=== PATIENT | female | born 1945 | race Asian ===

== ENCOUNTER 2018-06-16 18:29 | Inpatient (IN) ==
[2018-06-16] MEDS ORDERED: *HR* Labetalol 20 MG/4 ML SYRINGE IVP ONE (19:41)
[2018-06-16] MEDS ORDERED: Aspirin 81 MG TAB.CHEW PO ONE (19:41)
[2018-06-16 20:10] LABS: Basophils % 0.4 %; Eosinophils # 0.1 K/mcL (0.0-0.6); Eosinophils % 0.8 %; Hematocrit 39.1 % (35.3-44.9); Hemoglobin 13.6 g/dL (11.5-15.4); Immature Granulocytes % 0.5 % (0-4); Lymphocytes # 1.8 K/mcL (0.6-4.6); Mean Corpuscular HGB Conc 34.8 g/dL (31.6-35.5); Mean Corpuscular Hemoglobin 30.2 pg (28.0-33.3); Mean Corpuscular Volume 86.7 fL (83.0-100.0); Mean Platelet Volume 8.4 fL (9.4-12.4); Monocytes # 0.5 K/mcL (0.0-1.3); Monocytes % 7.2 %; Neutrophils # 4.9 K/mcL (1.6-8.9); Platelet Count 331 K/mcL (140-400); Red Blood Count 4.51 M/mcL (3.82-4.97); Red Cell Distribution Width 12.3 % (11.5-14.5); Segmented Neutrophils % 67.1 %
--- NOTE | 2018-06-16 20:15 | Emergency Department Note ---
Disposition Clinical Impression: Cerebrovascular accident Qualifiers: CVA mechanism: unspecified Qualified Code(s): I63.9 - Cerebral infarction, unspecified Disposition: Admitted As Inpatient Condition: Fair Referrals: NONE,PCP [Primary Care Provider] - Forms: ED Satisfaction Letter Time of Disposition: 22:59 Neuro HPI - General Chief Complaint: ED Neuro Symptoms/Deficit Stated Complaint: Neuro symptoms Time Seen by Provider: 06/16/18 19:16 Source: patient, family Limitations: no limitations Nursing Notes Reviewed: Yes Vital Signs Reviewed: Yes - History of Present Illness HPI Narrative: 72-year-old female with no prior medical history on no medications presents to the emergency department complaining of right sided weakness and unable to walk. Symptoms started yesterday morning. reports that she seemed okay when she got up yesterday morning and they made some soup but she did not want to eat and went back to bed around 10 AM. He states that all day yesterday she just stayed in bed and did not want to get up. When she did try to get up she was unable to stand or walk. He states her legs just did not work. She also is noted to have right arm and right leg weakness. also reports that her speech has been slow and slurred and not normal for her. No prior history of hypertension or strokes. Patient denies any headache. She denies any fall or injury to the head. No other symptoms. Symptoms have been constant since onset and do not seem to have improved. Onset of Symptoms Date: 06/15/18 Onset of Symptoms Time: 10:00 Timing confirmed by: spouse Location: right face, dysarthria, right arm, right leg History of same: No Severity: moderate Quality: weakness, constant Symptoms Improving: No On Anticoagulants: No Associated symptoms: Reports: loss of appetite, malaise, weakness. Denies: confusion, chest pain, cough, diaphoresis, fever/chills, headaches, nausea/ vomiting, vertigo, seizures, shortness of breath, syncope Treatments Prior to Arrival: none - Related Data Home Medications: Home Medications Medication Instructions Recorded Confirmed No Known Home Drugs 06/16/18 06/16/18 Allergies/Adverse Reactions: Allergies Allergy/AdvReac Type Severity Reaction Status Date / Time No Known Allergies Allergy Verified 06/16/18 19:15 All systems ED: reviewed and negative except as stated. Constitutional: Reports: weakness. Denies: fever, chills Eyes: Denies: eye pain, vision change ENT ED: Denies: throat pain, dysphagia Cardiovascular: Denies: chest pain, palpitations, dyspnea on exertion, edema, syncope Respiratory: Denies: cough, dyspnea Gastrointestinal: Denies: abdominal pain, nausea, vomiting, diarrhea, constipation, hematemesis, melena, hematochezia Genitourinary: Denies: dysuria, frequency, hematuria Musculoskeletal: Denies: back pain, neck pain Integumentary: Denies: rash Neurological: Reports: weakness. Denies: headache, confusion Psychiatric: Denies: anxiety, depression Endocrine: Reports: fatigue Hematological/Lymphatic: Denies: easy bleeding Allergic/Immunologic: Denies: facial swelling Past Medical History - Past Medical History Medical history: Reports: hyperlipidemia, hypertension Psychiatric history: Reports: no psych history - Social History Smoking Status: Former smoker Smokeless Tobacco Status: No Alcohol use: Reports: rarely Drug use: Reports: none Physical Exam - General Limitations: no limitations General appearance: alert, in no apparent distress - Head Head exam: atraumatic, normocephalic, normal inspection - Eye Eye exam: Present: normal appearance, PERRL, EOMI. Absent: scleral icterus, conjunctival injection - ENT ENT exam: normal exam, normal oropharynx, mucous membranes moist, TM's normal bilaterally, normal external ear exam - Neck Neck exam: Present: normal inspection, full ROM, trachea midline. Absent: tenderness, meningismus, lymphadenopathy - Chest Chest inspection: Present: normal inspection, symmetric chest wall rise. Absent : tenderness - Respiratory Respiratory exam: Present: normal lung sounds bilaterally. Absent: respiratory distress, wheezes, stridor, accessory muscle use - Cardiovascular Cardiovascular exam: Present: regular rate, normal rhythm, normal heart sounds - Abdominal Exam Abdominal exam: Present: soft, Non-Tender, normal bowel sounds. Absent: distention, guarding, rebound, rigidity - Extremities Exam Extremities exam: Present: normal inspection. Absent: tenderness, pedal edema - Back Exam Back exam: Present: normal inspection. Absent: CVA tenderness (R), CVA tenderness (L) - Neurological Exam Neurological exam: Present: alert, oriented X3 - Expanded Neurological Exam Patient oriented to: Present: person, place, time Speech: Absent: receptive aphasia, expressive aphasia, total aphasia Cranial nerves: EOM function (II, III, IV, ): Normal, facial sensation (V): Normal, facial palsy (VII): Abnormal Right, tongue deviation (XII): Abnormal Right Motor strength - RUE: 1/5 Motor strength - RLE: 1/5 Coma Scale Eye Opening: Spontaneous Coma Scale Motor Response: Obeys Commands Coma Scale Verbal Response: Oriented Coma Scale Total: 15 - Psychiatric Psychiatric exam: Present: normal affect, normal mood - Skin Skin exam: Present: warm, dry, intact, normal color. Absent: cyanosis, diaphoresis Course Course Narrative: 72-year-old female with no prior medical history presents with acute CVA symptoms with onset about 36 hours ago. Her speech is slow and slightly slurred. She has slight right facial drooping. She has significant right upper and lower extremity weakness and is unable to ambulate. Noted to be hypertensive on arrival here. No history of hypertension. She is not on any regular medications. Patient will be given aspirin and stroke workup initiated. She will be admitted for further evaluation. - Consultations Consultation #1: 22:56 The hospitalist, Dr. Zhong, was consulted and accepted admission of the patient. Time: 22:23 Vital Signs Temperature 97.9 F 06/16/18 18:42 Pulse Rate 89 06/16/18 18:42 Respiratory Rate 16 06/16/18 18:42 Blood Pressure 221/97 06/16/18 18:42 O2 Sat by Pulse Oximetry 98 06/16/18 18:42 Temperature 97.9 F 06/16/18 18:42 Pulse Rate 75 06/16/18 20:38 Respiratory Rate 17 06/16/18 20:38 Blood Pressure 153/74 06/16/18 20:38 O2 Sat by Pulse Oximetry 95 06/16/18 20:38 Oxygen Delivery Oxygen Delivery Room Air Neuro Symptoms/Deficit - Lab Data Lab results reviewed: Yes I reviewed the patient's lab results. Result diagrams: 06/16/18 19:41 06/16/18 19:41 Lab Results 06/16/18 06/16/18 06/16/18 Range/Units 19:41 19:41 19:41 WBC 7.4 (4.3-11.1) K/mcL RBC 4.51 (3.82-4.97) M/mcL Hgb 13.6 (11.5-15.4) g/dL Hct 39.1 (35.3-44.9) % MCV 86.7 (83.0-100.0) fL MCH 30.2 (28.0-33.3) pg MCHC 34.8 (31.6-35.5) g/dL RDW 12.3 (11.5-14.5) % Plt Count 331 (140-400) K/mcL MPV 8.4 L (9.4-12.4) fL Immature Gran % 0.5 (0-4) % Seg Neutrophils % 67.1 % Lymphocytes % 24.0 % Monocytes % 7.2 % Eosinophils % 0.8 % Basophils % 0.4 % Neutrophils # 4.9 (1.6-8.9) K/mcL Lymphocytes # 1.8 (0.6-4.6) K/mcL Monocytes # 0.5 (0.0-1.3) K/mcL Eosinophils # 0.1 (0.0-0.6) K/mcL Basophils # 0.0 (0.0-0.2) K/mcL PT 11.2 (9.4-12.1) Seconds INR 1.0 APTT 31.6 (26.0-36.0) Seconds Sodium 135 L (136-145) mEq/L Potassium 3.8 (3.5-5.1) mEq/L Chloride 101 (98-107) mEq/L Carbon Dioxide 19 L (23-29) mEq/L BUN 15 (8-23) mg/dL Creatinine 0.61 (0.60-1.20) mg/dL Est GFR ( Amer) > 60 (> 60) Est GFR (Non-Af Amer) > 60 (> 60) BUN/Creatinine Ratio 25 (6-26) Glucose 178 H (70-105) mg/dL Calculated Osmolality 285 (280-300) Calcium 9.4 (8.6-10.3) mg/dL Troponin I < 0.03 (< 0.04) ng/mL - Radiology Data Radiology results reviewed: Yes I reviewed the patient's radiology results. Chest X-Ray 06/16/18 19:44 IMPRESSION: No acute cardiopulmonary disease. D/ / Frankie Finch MD / Frankie Finch MD Interpreting Provider: Frankei Finch MD Head CT 06/16/18 19:46 IMPRESSION: No acute intracranial abnormality. D/ / Frankie Finch MD / Frankie Finch MD Interpreting Provider: Frankie Finch MD - EKG Data EKG attestation: Yes I reviewed and interpreted this EKG. EKG results narrative: EKG shows a normal sinus rhythm with ventricular rate is 78. LVH. Anterior ST segment elevation likely secondary to the LVH as there are no reciprocal changes and patient has no chest pain. TPA Checklist - LKW: 3-4.5 hrs Add. Warnings/Precautions Patient/family understanding: The patient/family members have been counseled and understood the risk, benefit , and alternatives of treatment.
[2018-06-16 20:16] LABS: Prothrombin Time 11.2 Seconds (9.4-12.1)
[2018-06-16 20:18] LABS: Activated Partial Thrombo Time 31.6 Seconds (26.0-36.0)
[2018-06-16 20:33] LABS: Troponin I < 0.03 ng/mL (< 0.04)
[2018-06-16 22:18] LABS: BUN/Creatinine Ratio 25 (6-26); Blood Urea Nitrogen 15 mg/dL (8-23); Calcium 9.4 mg/dL (8.6-10.3); Carbon Dioxide 19 mEq/L (23-29); Chloride 101 mEq/L (98-107); Glucose 178 mg/dL (70-105); Osmolality,Calculated 285 (280-300); Potassium 3.8 mEq/L (3.5-5.1); Sodium 135 mEq/L (136-145); eGFR For Non-African Americans > 60 (> 60)
[2018-06-17] MEDS ORDERED: Gadolinium Contrast Agent (WT Based) IV PRN (00:42)
[2018-06-17] MEDS ORDERED: Acetaminophen 325 MG TABLET PO PRN (00:42)
[2018-06-17] MEDS ORDERED: *HR* Labetalol 20 MG/4 ML SYRINGE IVP ONE (00:51)
--- NOTE | 2018-06-17 01:46 | Internal Med History&Physical ---
Date of Encounter: 06/17/18 Time of Encounter: 01:42 Internal Medicine - H&P: HPI Chief complaint: weakness Admitted From: Home Plans for Post Hospital Care: Home History of present illness: 72-year-old female with no reported prior medical history and is on no medications who presented to the emergency department complaining of right sided weakness and the inability to walk. Apparently the symptoms started on Friday morning. The reports that she seemed okay when she got up in the morning and they made some soup but she did not want to eat and went back to bed around 10 AM. He states that all day she just stayed in bed and did not want to get up. When she did try to get up she was unable to stand or walk. He states her legs just did not work. He also noted her speech was more slurred and she was unable to move her right arm well. They did not seek medical attention and waited for another 24 hours in Friday evening to seek attention as they noticed she was not improving. On my assessment she denies headache, diplopia, chest pain and dyspnea. She states that she has been healthy till this point. In the ER she was seen to have elevated BP and was given IV labetalol. Head CT was done and negative. She received loading dose ASA. She is admitted for further care as stroke alert could not be called given the time of onset. Past Med Surg Social Fam HX - Past Medical History Medical history: hyperlipidemia, hypertension Additional medical history: cervial cancer Psychiatric history: no psych history - Social History Smoking Status: Former smoker Smokeless Tobacco Status: No Alcohol use: rarely Drug use: none Internal Medicine - H&P: Meds No Known Home Drugs 06/16/18 [History] 3 Allergy/AdvReac Type Severity Reaction Status Date / Time No Known Allergies Allergy Verified 06/16/18 19:15 All Systems PM: A 10-system review of systems was performed and is negative for pertinent findings except as documented above in the HPI. - Constitutional Vitals: Temp Pulse Resp BP Pulse Ox 98.0 F 73 15 199/85 95 06/17/18 00:58 06/17/18 00:58 06/17/18 00:58 06/17/18 00:58 06/17/18 00:55 Exam: Vitals: Reviewed General: Well-developed, well-appearing, NAD Skin: Warm and supple. HEENT: Moist mucous membranes. No conjunctivae pallor. Deviation of labial commissure to the left. Neck: No lymphadenopathy. No JVD. No carotid bruits. No palpable thyroid. Chest: Normal thoracic expansion. Normal breath sounds. Clear to auscultation. Heart: Normal S1 & S2; rhythmic. No rubs or murmurs. Abdomen: Non-distended, soft and non-tender to palpation. No peritoneal reaction. Liver is normal in size. Spleen is not palpable. Extremities: No clubbing, cyanosis or edema. No calf tenderness. Normal distal pulses. Neurological: Awake, alert and oriented to person, place and time. 2/5 RUE/RLE strength. 5/5 LUE/LLE strength. Sensation intact. Psych: Affect appropriate. Internal Med - H&P Results - Labs CBC & Chem 7: 06/16/18 19:41 06/16/18 19:41 - Assessment and plan (1) Cerebrovascular accident Current Visit: Yes Status: Acute Assessment and plan: The patient has a complete symmetric right hemiparesis which is persistent after 24 hours concerning for a CVA affecting the MCA territory. She has no known risk factors however is seen hypertensive upon arrival; unclear if this was a precipitating factor or now a reflex mechanism. Will control BP to ensure systolic does not go over 180mmHg and can start oral medications in the morning. Neurology, speech and PT consultation. Brain MRI/MRA necessary. Carotid eval and echo. Keep on telemetry. ASA 81mg daily after loading dose. High dose statin to be started. Fall/aspiration precautions Qualifiers: CVA mechanism: unspecified Qualified Code(s): I63.9 - Cerebral infarction, unspecified (2) Hypertension Current Visit: Yes Status: Acute Assessment and plan: As stated above. Qualifiers: Hypertension type: essential hypertension Qualified Code(s): I10 - Essential (primary) hypertension (3) DVT prophylaxis Current Visit: Yes Status: Acute Assessment and plan: SubQ heparin. - Time Spent With Patient Total time spent is greater than 50% in coordination of care (as documented) at patient's floor/unit and/or counseling patient: Greater than 35 minutes
[2018-06-17 02:25] LABS: Bilirubin,Urine Negative (Negative); Blood,Urine Negative (Negative); Clarity,Urine Clear (Clear); Color,Urine Yellow (Yellow); Glucose,Urine (UA) Normal (Normal); Ketones,Urine Negative (Negative); Leukocyte Esterase,Urine Small (Negative); Nitrite,Urine Negative (Negative); Protein,Urine Negative (Neg-Trace); Specific Gravity,Urine > 1.030 (1.010-1.025); Urobilinogen,Urine Normal (Normal)
[2018-06-17 02:35] LABS: Bacteria,Urine None Seen per hpf (None-Few); Hyaline Casts,Urine None Seen per lpf (None-Few); RBC,Urine 0-3 per hpf (0-3); Squamous Epithelial Cell,Urine Moderate per lpf (None-Few); WBC,Urine 0-3 per hpf (0-3)
[2018-06-17] MEDS: *HR* Heparin 5,000 UNIT/ML VIAL SQ SCH ×3 (05:30→21:48)
[2018-06-17] MEDS: Aspirin Enteric Coated 81 MG Tablet PO SCH (07:58)
[2018-06-17] MEDS: amLODIPine 5 MG TABLET PO SCH (07:58)
[2018-06-17 08:32] LABS: Alanine Aminotransferase 17 Units/L (7-52); Albumin 4.7 g/dL (3.5-5.7); Albumin/Globulin Ratio 1.4 (1.1-2.2); Alkaline Phosphatase 77 Units/L (34-104); Aspartate Amino Transferase 21 Units/L (13-39); BUN/Creatinine Ratio 25 (6-26); Bilirubin,Total 0.6 mg/dL (0.3-1.0); Blood Urea Nitrogen 16 mg/dL (8-23); Calcium 9.5 mg/dL (8.6-10.3); Carbon Dioxide 23 mEq/L (23-29); Chloride 101 mEq/L (98-107); Chol/HDL Ratio 5.3 (0-4.9); Cholesterol 275 mg/dL (< 200); Globulin 3.4 g/dL (2.4-3.5); Glucose 169 mg/dL (70-105); HDL Cholesterol 52 mg/dL (40-59); LDL Cholesterol,Calculated 174 mg/dL (0-99); Osmolality,Calculated 285 (280-300); Potassium 3.4 mEq/L (3.5-5.1); Sodium 135 mEq/L (136-145); Total Protein 8.1 g/dL (6.4-8.9); Triglycerides 245 mg/dL (< 150); eGFR For Non-African Americans > 60 (> 60)
[2018-06-17 08:34] LABS: Thyroid Stimulating Hormone 2.693 mcIU/mL (0.340-5.600)
[2018-06-17 09:10] LABS: Estimated Average Glucose 143 mg/dl; Hemoglobin A1C 6.6 %
[2018-06-17 09:11] LABS: Basophils % 0.6 %; Eosinophils # 0.1 K/mcL (0.0-0.6); Eosinophils % 1.4 %; Hematocrit 40.1 % (35.3-44.9); Hemoglobin 14.1 g/dL (11.5-15.4); Immature Granulocytes % 0.3 % (0-4); Lymphocytes # 2.2 K/mcL (0.6-4.6); Lymphocytes % 30.9 %; Mean Corpuscular HGB Conc 35.2 g/dL (31.6-35.5); Mean Corpuscular Hemoglobin 29.9 pg (28.0-33.3); Mean Platelet Volume 8.7 fL (9.4-12.4); Monocytes # 0.6 K/mcL (0.0-1.3); Monocytes % 8.7 %; Neutrophils # 4.2 K/mcL (1.6-8.9); Platelet Count 369 K/mcL (140-400); Red Blood Count 4.72 M/mcL (3.82-4.97); Red Cell Distribution Width 12.7 % (11.5-14.5); Segmented Neutrophils % 58.1 %
--- NOTE | 2018-06-17 09:38 | Electrocardiograph Report ---
[place] [id number] Test Date: 2018-06-16 Pat Name: Breana Mejia Department: [id number] Room: [facility] Gender: F Market Research Executive: : 1945 Requested By: Dennis Mcbride Order Number: [id number] Reading MD: Simon Rios Measurements Intervals [place] Rate: 78 P: 65 VT: 168 QRS: 79 QRSD: 90 T: 89 QT: 401 QTc: 457 Interpretive Statements Sinus rhythm Left ventricular hypertrophy Nonspecific ST-T changes Electronically Signed On 06-17-2018 9:36:39 EDT by Simon Rios
--- NOTE | 2018-06-17 11:21 | Neurology - Consult Note ---
<Michael Lemus - Last Filed: 06/17/18 12:41> Date of Encounter: 06/17/18 Time of Encounter: 11:21 Assessment and Plan (1) Cerebrovascular accident Current Visit: Yes Status: Acute 72 year old female with right upper extremity and right lower extremity weakness. Right upper extremity is severely impaired with near flaccid paralysis of flexion and extension of the arm, and with hand movements. RLE strength is 3/5 on examination. MRI positive for acute infarct of the paracentral pontine region with stenosis of the basilar artery evident on MRA. Clinical presentation most likely represent an embolic event from the basilar artery; however, there is also a questionable atherosclerosis vs. less likely dissection of the vertebral artery. Patient also has evidence of hyperlipidemia , hypertension, and diabetes based on elevated blood sugar and HbA1c levels. No evidence for afib or arrhythmias seen on tele. 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 -f/u speech, PT, OT evaluations and recommendations -will continue to monitor and f/u with pending results for any further recommendations Qualifiers: CVA mechanism: unspecified Qualified Code(s): I63.9 - Cerebral infarction, unspecified History of Present Illness Chief complaint: Right sided weakness HPI: Ms. Mejia is a 72 year old female, reportedly not on any home medications, who was admitted to the hospital with concerns of a stroke. History was collected from patient and records. The patient experienced initial symptoms at approximately 10am Friday morning as she felt weak in her right leg and was unable to support her weight while walking. She also noted significant right arm weakness and says her speech became slow and slurred. Patient presented to the ED on Friday evening for lack of improvement of her symptoms. In the ED she was found to be hypertensive and initial labs revealed elevated random glucose with subsequent A1c of 6.6. Her lipids were also significantly elevated. CT head was negative, however MRI revealed an acute 2.4x0.9x1.1 cm left paracentral pontine infarct with severe stenosis of the proximal one third of the basilar artery seen on MRA. This morning the patient's symptoms are unchanged, she continues to have flacid paralysis of the RUE below the shoulder , and significant weakness of the RLE as well. She denies any sensory deficit, but endorses continued difficulty with speech as it feels slow. Past Med Surg Social Fam HX - Past Medical History Medical history: hyperlipidemia, hypertension Additional medical history: cervial cancer Psychiatric history: no psych history - Social History Smoking Status: Former smoker Smokeless Tobacco Status: No Alcohol use: rarely Drug use: none Medications and Allergies No Known Home Drugs 06/16/18 [History] 3 Allergy/AdvReac Type Severity Reaction Status Date / Time No Known Allergies Allergy Verified 06/16/18 19:15 All Systems: The remainder of the systems were reviewed and are negative Review of Systems: admits to difficulty with speech, weakness of RUE and weakness of RLE. denies blurry vision, changes in hearing, double vision, RUE or RLE sensory changes, facial sensory changes, or any left sided symptoms. Physical Examination - Vital Signs Vital Signs: Initial Vital Signs Temp Pulse Resp BP Pulse Ox 97.9 F 89 16 221/97 98 06/16/18 18:42 06/16/18 18:42 06/16/18 18:42 06/16/18 18:42 06/16/18 18:42 - Exam Exam: Constitutional: resting in bed, sad mood noted Neurological: mild facial droop noted on the right, facial motor function intact at the forehead bilaterally. sensation is intact to light touch bilaterally. pupils are equal round and reactive bilaterally. Extraoccular movements are intact. tongue and uvula are midline. No SCM or trapezius weakness noted. muscles of mastication intact. upper Extremities: Patient has profound weakness of the right arm. She is holding it with her left arm and uses the left hand to move her right arm throughout the examination. Right biceps and triceps strength is 1/5, with occasional flicker of contraction noted. Affiliate Marketing Specialist strength is 0/5 on the right. Strength at the level of the shoulder when attempting to raise right arm is 3/ 5. LUE strength is 5/5 throughout. sensation intact to light touch and temperature bilaterally. Bicep reflexes are brisk on the right compared to left. Unable to test pronator drift, finger to nose on right side, rapid alternating hand movements secondary to near flacid paralysis of the right upper extremity. Lower Extremities: RLE muscle strength at the level of hip and knee are both 3/ 5. She can raise leg off bed for a few seconds at a time. unable to maintain position against resistance. LLE muscle strength is 5/5 throughout. sensation intact to light touch and temperature bilaterally. unable to test heel to [place] due to weakness. babinski negative. patellar reflexes intact. Results - Laboratory Findings CBC and BMP: 06/17/18 07:32 06/17/18 07:32 Abnormal lab findings: Abnormal lab results MPV 8.7 fL (9.4-12.4) L 06/17/18 07:32 Sodium 135 mEq/L (136-145) L 06/17/18 07:32 Potassium 3.4 mEq/L (3.5-5.1) L 06/17/18 07:32 Glucose 169 mg/dL (70-105) H 06/17/18 07:32 POC Glucose 149 mg/dL (70-99) H 06/17/18 01:19 Hemoglobin A1c 6.6 % (-5.6) H 06/17/18 07:32 Triglycerides 245 mg/dL (< 150) H 06/17/18 07:32 Cholesterol 275 mg/dL (< 200) H 06/17/18 07:32 LDL Cholesterol, Calc 174 mg/dL (0-99) H 06/17/18 07:32 VLDL Cholesterol, Calc 49 mg/dL (< 31) H 06/17/18 07:32 Cholesterol/HDL Ratio 5.3 (0-4.9) H 06/17/18 07:32 Ur Specific [place] > 1.030 (1.010-1.025) H 06/17/18 01:47 Ur Leukocyte Esterase Small (Negative) H 06/17/18 01:47 Ur Squamous Epith Cells Moderate per lpf (None-Few) H 06/17/18 01:47 Ur Culture Indicated? YES (NO) A 06/17/18 01:47 Consult Discharge Plan - Plan Referrals: NONE,PCP [Primary Care Provider] - <Jarod Zamora - Last Filed: 06/17/18 16:32> Date of Encounter: 06/17/18 Time of Encounter: 15:50 Assessment and Plan (1) Cerebrovascular accident Current Visit: Yes Status: Acute As above. However we will likely dealing with a small vessel event perhaps one of the pontine perforating arteries, also there is attenuation of the right vertebral artery. In any regard management of her stroke risk factors is going to be paramount. At this juncture I recommend aggressively treating her blood pressure to a systolic of at least 140, she should be maintained on lipid lowering therapy. I am not convinced that dual antiplatelet therapy is necessary here. I would recommend Plavix which is reportedly better for a posterior fossa ischemic events particularly in women. Also aggressive management of her diabetes. Recommend aggressive PT, OT, and speech therapy. Patient would best benefit from aggressive inpatient physical therapy my opinion. I am certainly strongly against her taking her home until she is clinically stable. At this juncture she is unable to walk in might present a risk to herself due to falls. We will reevaluate at your request. Qualifiers: CVA mechanism: unspecified Qualified Code(s): I63.9 - Cerebral infarction, unspecified History of Present Illness HPI: The chart was reviewed, the patient was seen and examined along with the resident. I agree with his assessment as stated above. All Systems: The remainder of the systems were reviewed and are negative Review of Systems: the balance of the systems review is negative. Physical Examination - Vital Signs Vital Signs: Initial Vital Signs Temp Pulse Resp BP Pulse Ox 97.9 F 89 16 221/97 98 06/16/18 18:42 06/16/18 18:42 06/16/18 18:42 06/16/18 18:42 06/16/18 18:42 - Exam Exam: I agree with the neurology resident's assessment/neurologic examination as stated above. Results - Laboratory Findings CBC and BMP: 06/17/18 07:32 06/17/18 07:32 Abnormal lab findings: Abnormal lab results MPV 8.7 fL (9.4-12.4) L 06/17/18 07:32 Sodium 135 mEq/L (136-145) L 06/17/18 07:32 Potassium 3.4 mEq/L (3.5-5.1) L 06/17/18 07:32 Glucose 169 mg/dL (70-105) H 06/17/18 07:32 POC Glucose 149 mg/dL (70-99) H 06/17/18 01:19 Hemoglobin A1c 6.6 % (-5.6) H 06/17/18 07:32 Triglycerides 245 mg/dL (< 150) H 06/17/18 07:32 Cholesterol 275 mg/dL (< 200) H 06/17/18 07:32 LDL Cholesterol, Calc 174 mg/dL (0-99) H 06/17/18 07:32 VLDL Cholesterol, Calc 49 mg/dL (< 31) H 06/17/18 07:32 Cholesterol/HDL Ratio 5.3 (0-4.9) H 06/17/18 07:32 Ur Specific [place] > 1.030 (1.010-1.025) H 06/17/18 01:47 Ur Leukocyte Esterase Small (Negative) H 06/17/18 01:47 Ur Squamous Epith Cells Moderate per lpf (None-Few) H 06/17/18 01:47 Ur Culture Indicated? YES (NO) A 06/17/18 01:47
[2018-06-17] MEDS ORDERED: Isovue-370 500 ML INFUS..BTL IV ONE (12:34)
--- NOTE | 2018-06-17 12:36 | Event Note ---
Date of Encounter: 06/17/18 Time of Encounter: 12:28 Patient seen and evaluated at bedside. patient still reports no improvement of the strength of her right upper extremity. Has slight improvement of the strength in the right lower extremity. Still has slurred speech but much improved when compared to when she presented to the ED as per . Patient hemodynamycally stable. MRI positive for stroke. Assessment/Plan: 1. Ischemic CVA left paracentral pontine infarct. 2. 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 3. HTN 4. HLD 5. VTE prophylaxis Plan PT/OT Dual antiplatelet therapy Nuerology has been consulted will follow recommendations Heparin for DVT prophylaxis Will discuss with neurology wether permissive HTN of any benefit for this patient as her stroke like symptoms started on Friday.
[2018-06-18] MEDS: *HR* Heparin 5,000 UNIT/ML VIAL SQ SCH ×3 (05:36→21:07)
[2018-06-18] MEDS: Aspirin Enteric Coated 81 MG Tablet PO SCH (07:42)
[2018-06-18] MEDS: amLODIPine 5 MG TABLET PO SCH (07:42)
--- NOTE | 2018-06-18 08:43 | Neurology Progress Note ---
Date of Encounter: 06/18/18 Time of Encounter: 08:40 Assessment and Plan (1) Cerebrovascular accident Current Visit: Yes Status: Acute Left brainstem infarct. This is a small vessel event secondary to her risk factors which include hypertension, diabetes mellitus, hyperlipidemia. I would recommend aggressive management of her risk factors. We will also recommend Plavix 75 mg daily indefinitely. Also recommend statin therapy. She will need aggressive physical therapy to try to recover from her right upper extremity strength. Otherwise there is no evidence of vascular occlusion of the carotid circulation. The left vertebral artery is attenuated. There is also severe stenosis of the basilar artery. Unfortunately this is not amendable to procedural intervention. We will reevaluate at your request. Qualifiers: CVA mechanism: unspecified Qualified Code(s): I63.9 - Cerebral infarction, unspecified Subjective Interval history: The chart was reviewed, patient was seen and examined. Apparently she had an uneventful night. She seems to have a slight bit of improvement in the strength of the right deltoid and biceps. However her driftman strength remains absent. She is awake alert and interactive. Objective - Constitutional Vitals: Temp Pulse Resp BP Pulse Ox 97.8 F 84 17 186/78 96 06/18/18 07:47 06/18/18 07:47 06/18/18 07:47 06/18/18 07:47 06/18/18 07:47 - Neurological Exam Motor examination - right side: 1/5: wrist flexion, wrist extension, driftman (0/5) , 2/5: deltoids, biceps, 3/5: triceps, hip flexors, tibialis Anterior, quadriceps, 4/5: toe extension (EHL), plantarflexion Motor examination - left side: 5/5: deltoids, biceps, triceps, hip flexors, driftman , quadriceps, tibialis Anterior, toe extension (EHL), plantarflexion Sensation intact: Present: intact Mental Status Examination: Present: awake, alert, oriented to person, oriented to place Cranial nerve examination: Present: PERRL, EOMI, visual arreguin intact, sensory to face intact, mastication intact, no facial asymmetry is present Results - Laboratory Findings CBC and BMP: 06/17/18 07:32 06/17/18 07:32 Abnormal lab findings: Abnormal lab results MPV 8.7 fL (9.4-12.4) L 06/17/18 07:32 Sodium 135 mEq/L (136-145) L 06/17/18 07:32 Potassium 3.4 mEq/L (3.5-5.1) L 06/17/18 07:32 Glucose 169 mg/dL (70-105) H 06/17/18 07:32 POC Glucose 142 mg/dL (70-99) H 06/17/18 22:10 Hemoglobin A1c 6.6 % (-5.6) H 06/17/18 07:32 Triglycerides 245 mg/dL (< 150) H 06/17/18 07:32 Cholesterol 275 mg/dL (< 200) H 06/17/18 07:32 LDL Cholesterol, Calc 174 mg/dL (0-99) H 06/17/18 07:32 VLDL Cholesterol, Calc 49 mg/dL (< 31) H 06/17/18 07:32 Cholesterol/HDL Ratio 5.3 (0-4.9) H 06/17/18 07:32 Ur Specific [place] > 1.030 (1.010-1.025) H 06/17/18 01:47 Ur Leukocyte Esterase Small (Negative) H 06/17/18 01:47 Ur Squamous Epith Cells Moderate per lpf (None-Few) H 06/17/18 01:47 Ur Culture Indicated? YES (NO) A 06/17/18 01:47 Consult Discharge Plan - Plan Referrals: NONE,PCP [Primary Care Provider] -
--- NOTE | 2018-06-18 14:18 | Internal Med Progress Note ---
Hospitalist Progress Note - Encounter Date of Encounter: 06/18/18 Time of Encounter: 14:23 - Subjective Interval History: Pt states R arm and leg weakness slightly better today. She denies trouble swallowing. Speech is still slowed but clear. Some visual disturbance but denies wearing glasses. She denies fever, chills, N/V or diarrhea. She denies CP or SOB. - Exam Vitals: Temp Pulse Resp BP Pulse Ox 98.0 F 85 18 166/75 95 06/18/18 12:20 06/18/18 12:20 06/18/18 12:20 06/18/18 12:20 06/18/18 12:20 Exam: Vitals: Reviewed General: Well-developed, well-appearing, NAD Skin: Warm and supple. HEENT: Moist mucous membranes. No conjunctivae pallor. Deviation of labial commissure to the left. Neck: No lymphadenopathy. No JVD. No carotid bruits. No palpable thyroid. Chest: Normal thoracic expansion. Normal breath sounds. Clear to auscultation. Heart: Normal S1 & S2; rhythmic. No rubs or murmurs. Abdomen: Non-distended, soft and non-tender to palpation. No peritoneal reaction. Liver is normal in size. Spleen is not palpable. Extremities: No clubbing, cyanosis or edema. No calf tenderness. Normal distal pulses. Neurological: Awake, alert and oriented to person, place and time. 2/5 RUE/RLE strength. 5/5 LUE/LLE strength. Sensation intact. Psych: Affect appropriate. - Assessment and Plan (1) Cerebrovascular accident Current Visit: Yes Status: Acute Assessment and Plan: The patient has a complete symmetric right quinton-paresis which is persistent after 24 hours concerning for a CVA affecting the MCA territory. She has no known risk factors however is seen hypertensive upon arrival; unclear if this was a precipitating factor or now a reflex mechanism. Will control BP to ensure systolic does not go over 180 mmHg and can start oral medications in the morning. Seen by Neurology and recommending adding plavix and aggressive management of risk factors. speech and PT/OT consultating. Carotid eval and echo pending. Keep on telemetry. ASA 81mg daily and plavix daily. High dose statin started. Fall/aspiration precautions Pt awaiting placement for rehab. Family trying to decide home vs rehab. MRA MR/MR angio neck wo/w con IMPRESSION: 1. Acute 2.4 x 0.9 x 1.1 cm left paracentral pontine infarct. 2. No acute intracranial hemorrhage. 3. 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 4. Diminutive, irregular appearance the distal left vertebral artery which may be secondary to atherosclerosis. A short segment dissection could also have this appearance, though considered less likely. CT angiography may be helpful for further characterization. 5. No significant stenosis within the common or internal carotid arteries. 6. Moderate stenosis of the origin of the left vertebral artery. The findings were sent to the [facility]iology [facility] at 11:41 am on 06/17/2018to be communicated to a licensed caregiver. MRI MR/MR head/brain wo con IMPRESSION: 1. Acute 2.4 x 0.9 x 1.1 cm left paracentral pontine infarct. 2. No acute intracranial hemorrhage. 3. 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 4. Diminutive, irregular appearance the distal left vertebral artery which may be secondary to atherosclerosis. A short segment dissection could also have this appearance, though considered less likely. CT angiography may be helpful for further characterization. 5. No significant stenosis within the common or internal carotid arteries. 6. Moderate stenosis of the origin of the left vertebral artery. The findings were sent to the Radiology Results Communication [facility] at 11:41 am on 06/17/2018to be communicated to a licensed caregiver. CTA CT/CT angio neck IMPRESSION: 1. Redemonstration of the patient's known acute ischemic left pontine infarct. No intracranial hemorrhage or mass effect. 2. Severe stenosis of the V4 segment left vertebral and proximal basilar arteries likely secondary to atherosclerotic disease. Otherwise, no hemodynamically significant intracranial arterial stenosis. 3. Severe stenosis of the V1 segment left vertebral artery. 4. 40% stenosis of the proximal left internal carotid artery. 5. No significant right internal carotid artery stenosis. 6. No right vertebral artery stenosis. 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 Unfortunately not amendable to surgery. Cont ASA, statin, and plavix. continue strict BP control. (3) Hypertension Current Visit: Yes Status: Acute Assessment and Plan: Started on Norvasc and adding HCTZ today, 06/18/2018 (4) Mixed hyperlipidemia Current Visit: Yes Status: Acute Assessment and Plan: Atorvastatin 80 mg PO QHS. Will add fenofibrate to regimen. DVT Prophylaxis: Heparin - Summary of Assessment and Plan Summary of Assessment and Plan: 72-year-old female with no reported prior medical history and is on no medications who presented to the emergency department complaining of right sided weakness and the inability to walk. Apparently the symptoms started on Friday morning. The reports that she seemed okay when she got up in the morning and they made some soup but she did not want to eat and went back to bed around 10 AM. He states that all day she just stayed in bed and did not want to get up. When she did try to get up she was unable to stand or walk. He states her legs just did not work. He also noted her speech was more slurred and she was unable to move her right arm well. They did not seek medical attention and waited for another 24 hours in Friday evening to seek attention as they noticed she was not improving. On my assessment she denies headache, diplopia, chest pain and dyspnea. She states that she has been healthy till this point. In the ER she was seen to have elevated BP and was given IV labetalol. Head CT was done and negative. She received loading dose ASA. She is admitted for further care as stroke alert could not be called given the time of onset. - Time Spent with Patient Total time spent is greater than 50% in coordination of care (as documented) at patient's floor/unit and/or counseling patient: less than 15 minutes Plan of Care Discussed with: patient Internal Medicine: Result - Labs CBC & Chem 7: 06/17/18 07:32 06/17/18 07:32 - ABG Interpretation ABG results: PT/INR, D-dimer PT 11.2 Seconds (9.4-12.1) 06/16/18 19:41 - Impressions Impressions Head CTA 06/17/18 12:34 IMPRESSION: 1. Redemonstration of the patient's known acute ischemic left pontine infarct. No intracranial hemorrhage or mass effect. 2. Severe stenosis of the V4 segment left vertebral and proximal basilar arteries likely secondary to atherosclerotic disease. Otherwise, no hemodynamically significant intracranial arterial stenosis. 3. Severe stenosis of the V1 segment left vertebral artery. 4. 40% stenosis of the proximal left internal carotid artery. 5. No significant right internal carotid artery stenosis. 6. No right vertebral artery stenosis. D/ / Zafar Cotto / Zafar Cotto Interpreting Provider: Zafar Cotto Neck CTA 06/17/18 12:34 IMPRESSION: 1. Redemonstration of the patient's known acute ischemic left pontine infarct. No intracranial hemorrhage or mass effect. 2. Severe stenosis of the V4 segment left vertebral and proximal basilar arteries likely secondary to atherosclerotic disease. Otherwise, no hemodynamically significant intracranial arterial stenosis. 3. Severe stenosis of the V1 segment left vertebral artery. 4. 40% stenosis of the proximal left internal carotid artery. 5. No significant right internal carotid artery stenosis. 6. No right vertebral artery stenosis. D/ / Zafar Cotto / Zafar Cotto Interpreting Provider: Zafar Cotto Consult Discharge Plan - Plan Referrals: NONE,PCP [Primary Care Provider] - (1) Cerebrovascular accident Qualifiers: CVA mechanism: unspecified Qualified Code(s): I63.9 - Cerebral infarction, unspecified (3) Hypertension Qualifiers: Hypertension type: essential hypertension Qualified Code(s): I10 - Essential (primary) hypertension
[2018-06-19] MEDS: *HR* Heparin 5,000 UNIT/ML VIAL SQ SCH ×3 (05:43→20:53)
[2018-06-19] MEDS: amLODIPine 5 MG TABLET PO SCH (07:14)
[2018-06-19] MEDS: hydroCHLOROthiazide 25 MG TABLET PO SCH (07:15)
[2018-06-19] MEDS: Aspirin Enteric Coated 81 MG Tablet PO SCH (07:15)
[2018-06-19] MEDS: Fenofibrate 54 MG TABLET PO SCH (07:15)
--- NOTE | 2018-06-19 12:44 | Internal Med Progress Note ---
Hospitalist Progress Note - Encounter Date of Encounter: 06/19/18 Time of Encounter: 11:30 - Exam Vitals: Temp Pulse Resp BP Pulse Ox 98.1 F 92 16 143/81 95 06/19/18 12:38 06/19/18 12:38 06/19/18 12:38 06/19/18 12:38 06/19/18 12:38 Exam: General: Well-developed, well-appearing, NAD Skin: Warm and supple. HEENT: Moist mucous membranes. No conjunctivae pallor. Deviation of labial commissure to the left. Neck: No lymphadenopathy. No JVD. No carotid bruits. No palpable thyroid. Chest: Normal thoracic expansion. Normal breath sounds. Clear to auscultation. Heart: Normal S1 & S2; rhythmic. No rubs or murmurs. Abdomen: Non-distended, soft and non-tender to palpation. No peritoneal reaction. Liver is normal in size. Spleen is not palpable. Extremities: No clubbing, cyanosis or edema. No calf tenderness. Normal distal pulses. Neurological: AAO x3. 2/5 RUE/RLE strength. 5/5 LUE/LLE strength. Sensation intact. Psych: Affect appropriate. - Assessment and Plan (1) Cerebrovascular accident Current Visit: Yes Status: Acute Assessment and Plan: The patient has a complete symmetric right quinton-paresis which is persistent after 24 hours concerning for a CVA affecting the MCA territory. She has no known risk factors however is seen hypertensive upon arrival; unclear if this was a precipitating factor or now a reflex mechanism. Will control BP to ensure systolic does not go over 180 mmHg and can start oral medications in the morning. Seen by Neurology and recommending adding plavix and aggressive management of risk factors. Carotid eval and echo pending. ASA 81mg daily and plavix daily. High dose statin started. Fall/aspiration precautions Pt awaiting placement for rehab. MRA MR/MR angio neck wo/w con IMPRESSION: 1. Acute 2.4 x 0.9 x 1.1 cm left paracentral pontine infarct. 2. No acute intracranial hemorrhage. 3. 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 4. Diminutive, irregular appearance the distal left vertebral artery which may be secondary to atherosclerosis. A short segment dissection could also have this appearance, though considered less likely. CT angiography may be helpful for further characterization. 5. No significant stenosis within the common or internal carotid arteries. 6. Moderate stenosis of the origin of the left vertebral artery. The findings were sent to the Radiology Results Communication Center at 11:41 am on 06/17/2018to be communicated to a licensed caregiver. MRI MR/MR head/brain wo con IMPRESSION: 1. Acute 2.4 x 0.9 x 1.1 cm left paracentral pontine infarct. 2. No acute intracranial hemorrhage. 3. 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 4. Diminutive, irregular appearance the distal left vertebral artery which may be secondary to atherosclerosis. A short segment dissection could also have this appearance, though considered less likely. CT angiography may be helpful for further characterization. 5. No significant stenosis within the common or internal carotid arteries. 6. Moderate stenosis of the origin of the left vertebral artery. The findings were sent to the Radiology Results Communication Center at 11:41 am on 06/17/2018to be communicated to a licensed caregiver. CTA CT/CT angio neck IMPRESSION: 1. Redemonstration of the patient's known acute ischemic left pontine infarct. No intracranial hemorrhage or mass effect. 2. Severe stenosis of the V4 segment left vertebral and proximal basilar arteries likely secondary to atherosclerotic disease. Otherwise, no hemodynamically significant intracranial arterial stenosis. 3. Severe stenosis of the V1 segment left vertebral artery. 4. 40% stenosis of the proximal left internal carotid artery. 5. No significant right internal carotid artery stenosis. 6. No right vertebral artery stenosis. (2) Hypertension Current Visit: Yes Status: Acute Assessment and Plan: Started on Norvasc and adding HCTZ , 06/18/2018 (3) Basilar artery occlusion with cerebral infarction Current Visit: Yes Status: Acute Assessment and Plan: There is severe stenosis of the intracranial left vertebral and proximal basilar arteries. Unfortunately not amendable to surgery. Cont ASA, statin, and plavix. continue strict BP control. (4) Mixed hyperlipidemia Current Visit: Yes Status: Acute Assessment and Plan: Atorvastatin 80 mg PO QHS. Will add fenofibrate to regimen. DVT Prophylaxis: Heparin - Time Spent with Patient Total time spent is greater than 50% in coordination of care (as documented) at patient's floor/unit and/or counseling patient: Internal Medicine: Result - Labs CBC & Chem 7: 06/17/18 07:32 06/17/18 07:32 - ABG Interpretation ABG results: PT/INR, D-dimer PT 11.2 Seconds (9.4-12.1) 06/16/18 19:41 Consult Discharge Plan - Plan Referrals: NONE,PCP [Primary Care Provider] - (1) Cerebrovascular accident Qualifiers: CVA mechanism: unspecified Qualified Code(s): I63.9 - Cerebral infarction, unspecified (2) Hypertension Qualifiers: Hypertension type: essential hypertension Qualified Code(s): I10 - Essential (primary) hypertension
[2018-06-19] MEDS ORDERED: Sennosides/Docusate Sodium TABLET PO PRN (13:45)
[2018-06-20] MEDS: *HR* Heparin 5,000 UNIT/ML VIAL SQ SCH (06:02)
[2018-06-20] MEDS: Aspirin Enteric Coated 81 MG Tablet PO SCH (08:07)
[2018-06-20] MEDS: amLODIPine 5 MG TABLET PO SCH (08:07)
[2018-06-20] MEDS: Fenofibrate 54 MG TABLET PO SCH (08:07)
[2018-06-20] MEDS: hydroCHLOROthiazide 25 MG TABLET PO SCH (08:07)
[2018-06-20 12:25] VITALS: BP 153/81
--- NOTE | 2018-06-20 13:35 | Discharge Summary ---
- NOTES TO OUTPATIENT PROVIDER Notes to Outpatient Provider: - Follow-up BP. - Follow-up with Neurology. Date of Encounter: 06/20/18 Time of Encounter: 13:32 - Discharge Diagnosis (1) Cerebrovascular accident Priority: Primary Status: Acute Qualifiers: CVA mechanism: unspecified Qualified Code(s): I63.9 - Cerebral infarction, unspecified (2) Hypertension Priority: Secondary Status: Acute Qualifiers: Hypertension type: essential hypertension Qualified Code(s): I10 - Essential (primary) hypertension (3) Basilar artery occlusion with cerebral infarction Priority: Secondary Status: Acute (4) Mixed hyperlipidemia Priority: Secondary Status: Acute Hospital course: 72-year-old female with no reported prior medical history and is on no medications who presented to the emergency department complaining of right sided weakness and the inability to walk. Symptoms started 2 days ago. The reports that she seemed okay when she got up in the morning and they made some soup but she did not want to eat and went back to bed around 10 AM. He states that all day she just stayed in bed and did not want to get up. When she did try to get up she was unable to stand or walk. He states her legs just did not work. He also noted her speech was more slurred and she was unable to move her right arm well. They did not seek medical attention and waited for another 24 hours in Friday evening to seek attention as they noticed she was not improving. In the ER she was seen to have elevated BP and was given IV labetalol. Head CT was done and negative. She received loading dose ASA. She is admitted for further care as stroke alert could not be called given the time of onset. MRI done was positive for acute infarct of paracentral pointine region with stenosis of basilar artery evident on MRA. There was questionable atherosclerosis vs less likely dissection of vertebral artery. Neurology was consulted. She was started on dual antiplatelet therapy, anticholesterol medications, and hypertension medications as she was seen to have elevated BP. The severe stenosis of basilar artery was not amendable to procedural intervention and so medical management was continued. Patient had PT/OT evaluation and needed swing bed for rehab and discharged in stable condition. She continues to have RUE weakness. Needs to continue to titrate BP medications to improve BP control. - Time Spent with Patient Total time spent providing and/or coordinating discharge services: - Discharge Medications Home Medications: Acetaminophen [Tylenol] 650 mg PO Q6HR PRN tablet 06/20/18 [Rx] Aspirin Enteric Coated [Aspirin EC] 81 mg PO DAILY tablet. 06/20/18 [Rx] Atorvastatin [Lipitor] 80 mg PO HS tablet 06/20/18 [Rx] Clopidogrel [Plavix] 75 mg PO DAILY tablet 06/20/18 [Rx] Fenofibrate [Tricor] 54 mg PO DAILY tablet 06/20/18 [Rx] Sennosides/Docusate Sodium [Senna Plus] 1 each PO DAILY PRN tablet 06/20/18 [Rx ] amLODIPine [Norvasc] 10 mg PO DAILY tablet 06/20/18 [Rx] hydroCHLOROthiazide [Hydrochlorothiazide] 12.5 mg PO DAILY tablet 06/20/18 [Rx] Allergies/Adverse Reactions: 3 Allergy/AdvReac Type Severity Reaction Status Date / Time No Known Allergies Allergy Verified 06/16/18 19:15 Date of admission: 06/17/18 01:28 Primary care physician: PCP NONE Discharging clinician: Last Neal - Constitutional Vitals: Temp Pulse Resp BP Pulse Ox 98.1 F 89 16 153/81 96 06/20/18 12:24 06/20/18 12:24 06/20/18 12:24 06/20/18 12:24 06/20/18 12:24 Exam: Gen: NAD, AAO x3 HEENT: Moist mucous membranes. No conjunctivae pallor. Deviation of labial commissure to the left. Neck: No lymphadenopathy. No JVD. No carotid bruits. No palpable thyroid. Chest: Normal thoracic expansion. Normal breath sounds. Clear to auscultation. Heart: Normal S1 & S2; rhythmic. No rubs or murmurs. Abdomen: Non-distended, soft and non-tender to palpation. No peritoneal reaction. Liver is normal in size. Spleen is not palpable. Extremities: No clubbing, cyanosis or edema. No calf tenderness. Normal distal pulses. Neurological: AAO x3. 2/5 RUE/RLE strength. 5/5 LUE/LLE strength. Sensation intact. Psych: Affect appropriate. - Patient Status Disposition: Transfer SNF Condition: Fair Functional capacity at discharge: bed bound Overall status at discharge: patient is not back to baseline - Discharge Instructions Follow Up With: NONE,PCP [Primary Care Provider] - - Diet and Activity Activity: as per physical therapy Diet: low fat, low cholesterol, low salt diet
--- NOTE | 2018-06-20 13:45 | Physician Discharge Referral ---
ExtendedCare Referral Info Provider in Charge after Transfer: Other Institutional Level of Care: Skilled - Diagnosis (1) Cerebrovascular accident Priority: Primary Status: Acute (2) Hypertension Priority: Secondary Status: Acute (3) Basilar artery occlusion with cerebral infarction Priority: Secondary Status: Acute (4) Mixed hyperlipidemia Priority: Secondary Status: Acute - Transfer Medications Home Medications: Acetaminophen [Tylenol] 650 mg PO Q6HR PRN tablet 06/20/18 [Rx] Aspirin Enteric Coated [Aspirin EC] 81 mg PO DAILY tablet.dr 06/20/18 [Rx] Atorvastatin [Lipitor] 80 mg PO HS tablet 06/20/18 [Rx] Clopidogrel [Plavix] 75 mg PO DAILY tablet 06/20/18 [Rx] Fenofibrate [Tricor] 54 mg PO DAILY tablet 06/20/18 [Rx] Sennosides/Docusate Sodium [Senna Plus] 1 each PO DAILY PRN tablet 06/20/18 [Rx ] amLODIPine [Norvasc] 10 mg PO DAILY tablet 06/20/18 [Rx] hydroCHLOROthiazide [Hydrochlorothiazide] 12.5 mg PO DAILY tablet 06/20/18 [Rx] Allergies/Adverse Reactions: 3 Allergy/AdvReac Type Severity Reaction Status Date / Time No Known Allergies Allergy Verified 06/16/18 19:15 - Respiratory Orders Smoking Cessation: Smoking cessation has been advised. For more information, call the [place] Tobacco Quit Line at 4-705-EYVONOW. - Advance Directives Code Status: Full Code - Mobility Orders Other (as per PT) - Rehabiliation Orders Rehab Orders: Evaluation for Physical Therapy, Evaluation for Occupational Therapy, Evaluation for Speech Therapy - Treatments Skin tear care topically daily PRN per policy, May check for fecal impaction rectally daily PRN - Diet Orders No Added Salt (MAGUI), Cardiac CERTIFICATION: I certify that the transfer of the above named patient to an Extended Care Facility is necessary for the continuing treatment of the diagnosis listed. The above information is true and accurate reflection of patient's current condition. Confidential - Redisclosure prohibited without a patient's written consent.
== END 2018-06-20 14:58 | DRG 65 ==
LOC: EMEROOARM 18:29 → 3BNU 18:29 → SUATTDRO 06-17 01:28
PROVIDERS: ADMIT Internal Medicine; ATTEND Student in an Organized Health Care Education/Training Program